=== PATIENT | female | born 1945 | race Caucasian/White ===

== ENCOUNTER 2022-08-03 12:59 | Day surgery (SDC) | payer MEDICARE, OTHER ==
[2022-08-03] VITALS (8 sets, daily range): BP systolic 142–171; BP diastolic 54–80
[~2022-08-03] VITALS: Ht 147.3 cm; Wt 70.8 kg
[2022-08-03] MEDS ORDERED: normal saline 1,000 ML IV SCH (13:25)
[2022-08-03] MEDS ORDERED: LORazepam 0.5 MG tablet PO PRN (13:25)
[2022-08-03] MEDS ORDERED: CALC250T2 PO (14:14)
[2022-08-03] MEDS ORDERED: ALLO100T49 PO (14:14)
[2022-08-03] MEDS ORDERED: DOXA4TAB3 PO (14:14)
[2022-08-03] MEDS ORDERED: LEVO50TA66 PO (14:14)
[2022-08-03] MEDS ORDERED: MULT-969 PO (14:14)
[2022-08-03] MEDS ORDERED: CITA20TA61 PO (14:14)
[2022-08-03] MEDS ORDERED: ATOR40TA71 PO (14:14)
[2022-08-03] MEDS ORDERED: CARV-50 PO (14:14)
[2022-08-03] MEDS ORDERED: POTA-192 PO (14:14)
[2022-08-03] MEDS ORDERED: OMEG-45 PO (14:14)
[2022-08-03] MEDS ORDERED: FURO40TA4 PO (14:14)
[2022-08-03] MEDS ORDERED: ISOS60TA71 PO (14:14)
[2022-08-03] MEDS ORDERED: ASPI-280 PO (14:14)
[2022-08-03] MEDS ORDERED: NITR0.4T51 SL (14:14)
[2022-08-03 16:00] LABS: ALBUMIN 3.3 G/DL (3.4-5.0); ANION GAP 14 (8-16); BLOOD UREA NITROGEN 59 MG/DL (7-18); BUN/CREATININE RATIO 23.1 (10.0-20.0); CALCIUM 9.1 MG/DL (8.5-10.1); CHLORIDE 106 MMOL/L (99-107); CREATININE 2.55 MG/DL (0.40-0.90); GLUCOSE 85 MG/DL (70-104); SODIUM 143 MMOL/L (135-145); TOTAL CARBON DIOXIDE 22.7 MMOL/L (24-32); eGFR 18 ML/MIN
[2022-08-03] MEDS ORDERED: LIDOcaine 1% (10mg/ml)w/preservative inj. 20ml MDV ONE (16:07)
[2022-08-03] MEDS ORDERED: iohexol 350 MG/ML 50ML vial IV ONE (16:07)
[2022-08-03] MEDS ORDERED: midazolam 1 mg/ML 2ml injection ONE (16:10)
[2022-08-03] MEDS ORDERED: fentaNYL/PF 50MCG/1 ML 2ML syringe ONE (16:10)
[2022-08-03] MEDS ORDERED: HYDROcodone/acetaminophen 5mg/325mg tablet PO PRN (17:45)
[2022-08-03] MEDS ORDERED: HYDROcodone/acetaminophen 10/325mg tab PO PRN (17:45)
[2022-08-04 06:38] LABS: ISTAT Hct MIX 28 %PCV (35-45); ISTAT O2 SATURATION MIX VENOUS 53 % (60-80); ISTAT SOURCE VEN
== END 2022-08-03 19:10 | disposition home or self-care (01) ==
LOC: SSTAY O 12:59
PROVIDERS: ATTEND Student in an Organized Health Care Education/Training Program
DX: I13.0 Hypertensive heart and chronic kidney disease with heart failure and stage 1 through stage 4 chronic kidney disease, or unspecified chronic kidney disease (principal); I50.22 Chronic systolic (congestive) heart failure; N18.4 Chronic kidney disease, stage 4 (severe); E03.9 Hypothyroidism, unspecified; F41.9 Anxiety disorder, unspecified; F32.A Depression, unspecified; M10.9 Gout, unspecified; G47.33 Obstructive sleep apnea (adult) (pediatric); E78.5 Hyperlipidemia, unspecified; Z85.3 Personal history of malignant neoplasm of breast; Z79.899 Other long term (current) drug therapy; Z79.84 Long term (current) use of oral hypoglycemic drugs; Z88.8 Allergy status to other drugs, medicaments and biological substances
CPT/HCPCS: 33289; 36415; 80048; 82803; 85014; 85610; 93005; 99152; C2624; J1644; J2250; J3010; J3490; J7030; Q9967; 93451; 99153; A6258; A6449; C1751; C1769; C1894